=== PATIENT | male | born 1945 | race Caucasian/White ===

== ENCOUNTER → 2018-11-17 | Outpatient (CLI) | payer OTHER ==
[2018-11-17 15:21] LABS: CARBON DIOXIDE 29 MMOL/L (21-32); CHLORIDE 101 MMOL/L (98-107); POTASSIUM 4.9 MMOL/L (3.6-5.0); SODIUM 137 MMOL/L (135-145)
[2018-11-17 15:22] LABS: BUN/CREATININE RATIO 11; CALCIUM 9.3 MG/DL (8.5-10.1); CREATININE SERUM 1.14 MG/DL (0.60-1.30); GFR ESTIMATED > 60; GLUCOSE 107 MG/DL (70-105)
== END ==
LOC: LAB FS 09:11
PROVIDERS: ATTEND Urology
DX: N40.0 Benign prostatic hyperplasia without lower urinary tract symptoms (principal); E29.1 Testicular hypofunction
CPT/HCPCS: 36415; 80048; 84153; 84403

== ENCOUNTER → 2022-09-10 | Outpatient (CLI) | payer OTHER ==
--- NOTE | 2022-09-10 11:34 | Diagnostic Imaging Report ---
CLINICAL INDICATION: ICD-10 code G45.9. Transient cerebral attack. EXAM: MRI of the brain performed without IV contrast. Sequences include axial DWI, ADC map, axial T1, axial T2, axial FLAIR, coronal gradient echo, and sagittal T1. COMPARISON: None. FINDINGS: There is a small amount of curvilinear and amorphous elevated DWI signal with isointense/hypointense ADC map signal involving the lateral left frontal lobe in the cortical and subcortical regions. There is increased T2 signal also seen in this area. There is no intraparenchymal hemorrhage, brain herniation, or midline shift. There is diffuse brain parenchymal volume loss. There are small areas of chronic infarcts involving the lateral right frontal lobe and left occipital lobe region. There are multiple focal, patchy, and confluent areas of high T2 signal white matter changes involving both cerebral hemispheres and periventricular regions, likely representing chronic small vessel ischemic disease or leukoaraiosis. There is no hydrocephalus. Basal cisterns are unremarkable. The pituitary gland, sella, and suprasellar regions are unremarkable as visualized. The basal cisterns are unremarkable. The skull, extracranial soft tissue, and orbits are unremarkable. There is minimal mucosal thickening involving both maxillary sinuses, ethmoid sinuses, sphenoid sinuses, and frontal sinuses. Temporal bones show no significant abnormality. IMPRESSION: 1: There are small patchy areas of acute/subacute infarct involving the lateral left frontal lobe region. There is no intracranial hemorrhage, brain herniation, or midline shift. 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 Dictated by: Dictated on workstation # [id number]
== END ==
LOC: RAD 09:40
PROVIDERS: ATTEND Family Medicine
DX: I67.82 Cerebral ischemia (principal); I67.81 Acute cerebrovascular insufficiency; I63.9 Cerebral infarction, unspecified; G45.9 Transient cerebral ischemic attack, unspecified
CPT/HCPCS: 70551